=== PATIENT | male | born 1975 | race Caucasian/White ===

== ENCOUNTER 2020-10-13 14:39 | Emergency (ER) | payer BC ==
[~2020-10-13] VITALS: Ht 182.9 cm; Wt 167.8 kg
[2020-10-13 14:44] VITALS: BP_SYST 148
[2020-10-13] MEDS ORDERED: KETOROLAC TROMETHAMINE 30 MG VIAL IVP ONE (15:00)
[2020-10-13] MEDS ORDERED: NACL 0.9% 1,000 ML IV ONE (15:00)
[2020-10-13 15:13] LABS: BASOPHILS # (AUTO) 0.1 K/uL (0.0-0.2); BASOPHILS % (AUTO) 0.8 % (0.0-2.0); EOSINOPHILS # (AUTO) 0.1 K/uL (0.0-0.4); HEMATOCRIT 43.6 % (36-54); HEMOGLOBIN 14.5 g/dL (14.0-18.0); LYMPHOCYTES # (AUTO) 1.6 K/uL (1.0-5.5); LYMPHOCYTES % (AUTO) 11.8 % (20.5-51.5); MEAN CORPUSCULAR HEMOGLOBIN 28 pg (27-31); MEAN CORPUSCULAR HGB CONC 33 % (32-36); MEAN CORPUSCULAR VOLUME 85 fL (79.0-98.0); MONOCYTES # (AUTO) 1.2 K/uL (0.0-1.0); MONOCYTES % (AUTO) 8.9 % (1.7-9.3); NEUTROPHILS # (AUTO) 10.3 K/uL (1.8-7.7); NEUTROPHILS % (AUTO) 77.5 % (40.0-70.0); PLATELET COUNT (AUTO) 306 K/uL (130-430); RED BLOOD CELL COUNT(AUTO) 5.15 MIL/uL (4.2-6.2); RED CELL DISTRIBUTION WIDTH 14.2 % (9.0-15.0); WHITE BLOOD COUNT (AUTO) 13.2 K/uL (4.8-10.8)
[2020-10-13 15:22] LABS: CALCIUM 9.3 mg/dL (8.4-11.0); CREATININE 1.39 mg/dL (0.55-1.30); POTASSIUM 4.2 mmol/L (3.5-5.1)
[2020-10-13 15:28] LABS: ALBUMIN 4.2 g/dL (3.4-4.8); TOTAL BILIRUBIN 0.8 mg/dL (0.0-1.0)
[2020-10-13] MEDS ORDERED: TRAM50TA2 PO (15:30)
[2020-10-13] MEDS ORDERED: IBUP-1969 PO (15:30)
[2020-10-13] MEDS ORDERED: TAMS-11 PO (15:30)
[2020-10-13 15:44] VITALS: BP_SYST 139
== END 2020-10-13 15:44 | disposition home or self-care (01) ==
LOC: SED 14:39
DX: N23 Unspecified renal colic (principal); M10.9 Gout, unspecified; I10 Essential (primary) hypertension; Z79.899 Other long term (current) drug therapy
CPT/HCPCS: 36415; 74176; 76376; 80053; 85025; 96361; 96374; 99284; J1885; J7030